=== PATIENT | male | born 1945 | race Caucasian/White ===

== ENCOUNTER 2017-02-03 11:24 | Inpatient (IN) ==
[2017-02-03] MEDS ORDERED: ZALEPLON 5 MG CAPSULE PO PRN (11:57)
[2017-02-03] MEDS ORDERED: ONDANSETRON 4 MG/2 ML VIAL IV PRN (11:57)
[2017-02-03] MEDS ORDERED: MAGNESIUM SULF RIDER 2 GM in PREMIX 1 EACH IV PRN (11:57)
[2017-02-03] MEDS ORDERED: DOCUSATE SODIUM 100 MG CAPSULE PO PRN (11:57)
[2017-02-03] MEDS ORDERED: MAGNESIUM SULF RIDER 4 GM in PREMIX 1 EACH IV PRN (11:57)
[2017-02-03] MEDS ORDERED: ACETAMINOPHEN 325 MG TABLET PO PRN (11:57)
[2017-02-03 12:31] LABS: Basophils # 0.1 10*3/uL (0.0-0.2); Basophils % 0.9 % (0.0-0.8); Eosinophils # 0.5 10*3/uL (0.0-0.87); Eosinophils % 6.5 % (0.00-10.9); Hematocrit 34.8 VOL% (42.0-52.0); Hemoglobin 10.5 GM/DL (14.0-18.0); Immature Granulocytes % 0.3 %; Immature Granulocytes Absolute 0.02 #; Lymphocytes # 1.5 10*3/uL (1.4-4.0); Lymphocytes % 20.4 % (21.2-54.2); Mean Corpuscular HGB Conc 30.2 GM/DL (32-36); Mean Corpuscular Hemoglobin 23 PG (27-34); Mean Corpuscular Volume 75.2 FL (87-102); Mean Platelet Volume 10.9 FL (9.6-12.0); Monocytes # 0.7 10*3/uL (0.11-0.8); Monocytes % 9.6 % (1.7-12.7); Neutrophils # 4.6 10*3/uL (1.4-7.4); Neutrophils % 62.3 % (38.7-73.9); Platelet Count 228 T/CUMM (130-400); Red Blood Count 4.63 MC/CUMM (3.8-5.5); Red Cell Distribution Width 18.4 % (9.3-17.3); White Blood Count 7.4 T/CUMM (4-12)
--- NOTE | 2017-02-03 12:43 | EKG Report ---
Stationary ECG Study 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
[2017-02-03 13:04] LABS: Troponin I Only < 0.015 NG/ML (0.00-0.045)
--- NOTE | 2017-02-03 13:04 | XRay Report ---
XR chest 1V portable Indication: Shortness of breath Comparison: 14 August 2014 Findings: The heart and mediastinum are normal in size and configuration. The pulmonary vascularity is normal in caliber. No lung infiltrates, effusions, pneumothorax or other abnormality is demonstrated. Impression: No acute cardiopulmonary disease. PROCEDURE INTERPRETED AT [facility] DEPARTMENT OF RADIOLOGY Final Report Signed by: Dr. Ant Booth
[2017-02-03 13:10] LABS: Alanine Aminotransferase 24 U/L (16-61); Albumin 3.2 G/DL (3.4-5.0); Alkaline Phosphatase 96 U/L (45-117); Aspartate Amino Transferase 13 U/L (0-37); Bilirubin,Total < 0.39 MG/DL (0.2-1.0); Blood Urea Nitrogen 17 MG/DL (7-18); Calcium 8.5 MG/DL (8.5-10.1); Glucose 149 MG/DL (74-106); Osmolality,Calculated 279.7 MOS/KG (273-304); Potassium 3.3 MMOL/L (3.5-5.1); Sodium 138 MMOL/L (136-145); Total Protein 6.2 G/DL (6.4-8.3)
[2017-02-03 13:20] LABS: Apearance,Urine CLEAR (Clear); Bilirubin,Urine Negative (Negative); Blood, Urine Negative (Negative); Glucose,Urine (UA) Negative (Negative); Hyaline Casts,Urine 1 /LPF (0-3); Ketones,Urine Negative (Negative); Mucus,Urine Occasional /LPF (Occasional); Nitrite,Urine Negative (Negative); Protein,Urine Negative; RBC,Urine <1 /HPF (0-4); Squamous Epithelial Cell,Urine Occasional /HPF (0-10); Urine Color Yellow (Yellow); Urine Specific Gravity 1.011 (1.001-1.035); Urine Urobilinogen < 2.0 EU/DL (0.2-1.0); WBC,Urine 2 /HPF (0-6)
[2017-02-03] MEDS ORDERED: POTASSIUM CHLORIDE 20 MEQ TABLET PO ONE (13:41)
[2017-02-03] MEDS ORDERED: POLYVINYL ALCOHOL 1.4% OPH SOLN 15 ML BOTTLE BOTH EYES PRN (13:41)
[2017-02-03 14:05] LABS: Basophils # 0.1 10*3/uL (0.0-0.2); Basophils % 0.9 % (0.0-0.8); Eosinophils # 0.5 10*3/uL (0.0-0.87); Eosinophils % 6.5 % (0.00-10.9); Hemoglobin 10.6 GM/DL (14.0-18.0); Immature Granulocytes % 0.4 %; Immature Granulocytes Absolute 0.03 #; Lymphocytes # 1.5 10*3/uL (1.4-4.0); Lymphocytes % 20.7 % (21.2-54.2); Mean Corpuscular HGB Conc 30.3 GM/DL (32-36); Mean Corpuscular Hemoglobin 23 PG (27-34); Mean Corpuscular Volume 75.8 FL (87-102); Mean Platelet Volume 11.2 FL (9.6-12.0); Monocytes # 0.7 10*3/uL (0.11-0.8); Monocytes % 9.8 % (1.7-12.7); Neutrophils # 4.6 10*3/uL (1.4-7.4); Neutrophils % 61.7 % (38.7-73.9); Platelet Count 232 T/CUMM (130-400); Red Blood Count 4.62 MC/CUMM (3.8-5.5); Red Cell Distribution Width 18.5 % (9.3-17.3); White Blood Count 7.4 T/CUMM (4-12)
[2017-02-03] MEDS: CIPROFLOXACIN 500 MG TABLET PO SCH ×2 (14:11→21:38)
[2017-02-03] MEDS: SODIUM CHLORIDE 0.45% 1,000 ML IV SCH (14:11)
[2017-02-03 14:28] LABS: Folate > 24.0 NG/ML (5.4-24.0); Vitamin B12 630 PG/ML (211-911)
--- NOTE | 2017-02-03 14:57 | Cardiology History & Physical ---
<Nati Nettles E - Last Filed: 02/03/17 14:57> Assessment and Plan (1) Weakness Status: Acute Assessment and plan: SEE PLAN OF CARE LISTED BELOW Current Visit: Yes (2) Dizziness Status: Acute Assessment and plan: SEE PLAN OF CARE LISTED BELOW Current Visit: Yes (3) Hypotension Status: Acute Assessment and plan: SEE PLAN OF CARE LISTED BELOW Current Visit: Yes (4) PAF (paroxysmal atrial fibrillation) Status: Chronic Assessment and plan: SEE PLAN OF CARE LISTED BELOW Current Visit: Yes (5) High risk medication use Status: Chronic Assessment and plan: SEE PLAN OF CARE LISTED BELOW Current Visit: Yes (6) Chest pain Status: Acute Assessment and plan: SEE PLAN OF CARE LISTED BELOW Current Visit: Yes (7) Chronic pain Status: Chronic Assessment and plan: SEE PLAN OF CARE LISTED BELOW Current Visit: Yes (8) PTSD (post-traumatic stress disorder) Status: Chronic Assessment and plan: SEE PLAN OF CARE LISTED BELOW Current Visit: Yes (9) Polypharmacy Status: Chronic Assessment and plan: SEE PLAN OF CARE LISTED BELOW Current Visit: Yes (10) Dyslipidemia Status: Chronic Assessment and plan: SEE PLAN OF CARE LISTED BELOW Current Visit: Yes (11) UTI (urinary tract infection) Status: Chronic Assessment and plan: SEE PLAN OF CARE LISTED BELOW Current Visit: Yes (12) Anemia Status: Chronic Assessment and plan: SEE PLAN OF CARE LISTED BELOW Current Visit: Yes (13) JILLIAN (obstructive sleep apnea) Status: Chronic Assessment and plan: SEE PLAN OF CARE LISTED BELOW Current Visit: Yes History of Present Illness Chief complaint: Weakness, dizziness, atrial fib, hypotension 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 Mr. Sanchez, 71WM with risk factors significant for: Hypertension, dyslipidemia, sedentary lifestyle. History of paroxysmal atrial fibrillation (takes Eliquis for stroke prevention), mild mitral insufficiency, PTSD, obstructive sleep apnea (compliant with device) and legally blind. Echocardiogram September 02, 2016 reveals the following: EF 55%, 1+ MR, PAP 21 mmHg. Heart catheterization reveals the following: No evidence of significant fixed coronary obstruction. Patient was in his usual state of health until he began to get out of the vehicle to see Dr. Escobedo at [facility] this morning. As he was climbing out of the vehicle, he began to feel lightheaded, dizzy and weak. Upon evaluation at [facility], he was found to be in atrial fibrillation with a heart rate of 105, blood pressure 96/68. Patient was unsteady on his feet and was directly admitted from clinic for further workup. As I am examining the patient, patient reports he has had some mild chest pain which just started this afternoon. Described as tightness in the center of his chest without radiation. He can identify no aggravating nor any alleviating factors. He is unable to write the discomfort on a scale of 1-10, currently chest pain-free. Cardiac biomarkers negative, EKG does not reveal AK. At this point, I will hold his antihypertensives. His heart rate is controlled at 98 bpm though remains irregular. He does have a mild UTI, mildly anemic. He is very lethargic snoring and wakes easily but returns to sleep quickly. He has PTSD and has numerous medications which may contribute to dizziness, hypotension including Amitriptyline, Buspirone, Klonopin, Primidone, Tramadol, Topiramate. These multiple medications for PTSD, chronic pain/neuropathy are prescribed by his physician at the [facility] in [place], [place]. IV hydration at half-normal 100 ml/h, orthostatic vital signs, carotid ultrasound, no need to repeat echocardiogram as there is a recent study. Continue to hold his antihypertensives. I have started Cipro for UTI. Blood cultures 2 have been ordered. Continue cycle cardiac biomarkers, EKG. His heart rate is controlled at this time. I have added stool for occult blood 3 , anemia profile. Patient reports long-standing history of mild anemia. Underwent Colonoscopy within the last year performed by Dr. Hall and received favorable results her daughter's report. For now, continue Eliquis. Will further discuss with Dr. Stroud and await additional recommendations. ASSESSMENT/PLAN: 1. DIZZINESS - hydrate, carotid ultrasounds, hold antihypertensives. May be related to polypharmacy. May could benefit from the advice and management from hospitalist. 2. WEAKNESS - see plan of care listed above 3. PAF WITH RVR - currently rate controlled. Continue Eliquis for stroke prevention. No need for aspirin as the patient is taking Eliquis. 4. HYPOTENSION - adjust meds accordingly, hydrate, treat UTI 5. UTI - Cipro 500 mg orally twice daily 6. ANEMIA - patient had colonoscopy recently. Checking stools for occult blood. At this point, continue Eliquis per 7. LEGALLY BLIND - [place] falls prevention program 8. PTSD - treated by the [place] [facility] for PTSD. On numerous medications for such. 9. CHRONIC PAIN - chronic pain to include back pain, leg and feet pain. History of neuropathy. Continue gabapentin 10. DYSLIPIDEMIA - fasting lipid profile in the morning. Continue lipid- lowering agent 11. JILLIAN - may use his sleep device from home. Home Medications Medication Instructions Recorded Confirmed Type Albuterol Sulfate [Albuterol Neb] 1.25 mg RESP TX Q6HR 05/04/16 05/04/16 History Albuterol Sulfate [Ventolin HFA] 2 puff INH Q6HR 05/04/16 05/04/16 History Amitriptyline [Elavil] 4 tablet PO BEDTIME 05/04/16 05/04/16 History Apixaban [Eliquis] 5 mg PO BID 05/04/16 05/04/16 History Aspirin [Ecotrin] 81 mg PO DAILY 05/04/16 05/04/16 History Budesonide/Formoterol 160-4.5 2 puff INH BID 05/04/16 05/04/16 History [Symbicort 160-4.5] Docusate Sodium Cap [Colace Cap] 3 tablet PO DAILY 05/04/16 05/04/16 History Echinacea 2 tablet PO DAILY 05/04/16 05/04/16 History Gabapentin 300 mg PO BID 05/04/16 05/04/16 History Garlic 2 capsule PO DAILY 05/04/16 05/04/16 History Ipratropium Driver 0.2 mg IH QID 05/04/16 05/04/16 History Lisinopril 2.5 mg PO DAILY 05/04/16 05/04/16 History Multivitamin [Multivitamins] 1 each PO DAILY 05/04/16 05/04/16 History Naproxen [Naprosyn Tab] 250 mg PO BID 05/04/16 05/04/16 History [place]-3 Fatty Acids [Fish Oil] 2,000 mg PO DAILY 05/04/16 05/04/16 History Pantoprazole Tab [Protonix Tab] 2 tablet PO BID 05/04/16 05/04/16 History Polyvinyl Alcohol 1.4% Oph [place] 1 drop BOTH EYES Q2H PRN 05/04/16 05/04/16 History [Artificial Tears Oph Soln] Potassium Chloride 10 meq PO BID 05/04/16 05/04/16 History Pravastatin [Pravachol] 40 mg PO DAILY 05/04/16 05/04/16 History Primidone 2 capsule PO BEDTIME 05/04/16 05/04/16 History Topiramate [Topamax] 0.5 tablet PO BID 05/04/16 05/04/16 History amLODIPine [Norvasc] 10 mg PO DAILY 05/04/16 05/04/16 History busPIRone [Buspar] 10 mg PO TID 05/04/16 05/04/16 History clonazePAM TAB [KlonoPIN] 0.5 mg PO QID 05/04/16 05/04/16 History hydroCHLOROthiazide 25 mg PO DAILY 05/04/16 05/04/16 History [Hydrochlorothiazide] raNITIdine HCl [Ranitidine HCl] 2 capsule PO BEDTIME 05/04/16 05/04/16 History traMADol TAB [Ultram] 50 mg PO BID 05/04/16 05/04/16 History Allergies Allergy/AdvReac Type Severity Reaction Status Date / Time Beef Allergy Mild Nasal Verified 02/03/17 12:23 Congestion Cola Allergy Mild Nasal Verified 02/03/17 12:23 Congestion Milk Containing Products Allergy Mild Nasal Verified 02/03/17 12:23 Congestion Nuts Allergy Mild Nasal Verified 02/03/17 12:22 Congestion Pork Allergy Mild Nasal Verified 02/03/17 12:23 Congestion bacitracin Allergy Unknown Unknown/Unable Verified 05/04/16 13:22 [From Neosporin to obtain ([id number])] magnesium Allergy Unknown Unknown/Unable Verified 05/04/16 13:22 to obtain Neomycin Allergy Unknown Unknown/Unable Verified 05/04/16 13:22 [From Neosporin to obtain ([id number])] polymyxin B Allergy Unknown Unknown/Unable Verified 05/04/16 13:22 [From Neosporin to obtain ([id number])] zinc Allergy Unknown Unknown/Unable Verified 05/04/16 13:22 to obtain Review of systems: REVIEW OF SYSTEMS: - Constitutional Constitutional: Present: Fatigue dizziness, near syncope. Absent: syncope, anorexia, night sweats - EENT Eyes: Legally blind both eyes. Denies eye pain Ears: Absent: decreased hearing, ear pain, ear discharge - Cardiovascular Cardiovascular: Denies chest pain with exertion, dyspnea on exertion. Denies lower extremity edema. Occasional palpitations. Absent: chest pain with deep breath, claudication - Respiratory Respiratory: Denies RODRIGUEZ, Absent: wheezing, hemoptysis, change in phlegm color - Gastrointestinal Gastrointestinal: Denies: constipation. Possibly some abdominal bloating. Absent: Abdominal pain, hematemesis, hematochezia, melena, change in bowel habits, nausea - Genitourinary Genitourinary: Absent: difficulty urinating, dysuria, urinary hesitancy, flank pain - Musculoskeletal Musculoskeletal: Present: back pain, bilateral lower extremity pain including feet pain. Absent: joint swelling, muscle cramps, muscle weakness - Neurological Neurological: Present: Poor gait without frequent falls. Absent: dizziness, hemiparesis - Psychiatric Psychiatric: Anxiety and difficulty concentrating. Absent: Endocrine Endocrine: Present: fatigue. Absent: cold intolerance, heat intolerance, polyuria, polyphagia, polydipsia - Hematologic/Lymphatic Hematologic/Lymphatic: Present: easy bruising. Absent: easy bleeding -Integumentary Integumentary: Absent: lesions, rashes, skin breakdown Medical,Surgical,& Family Hx - Medical History Cardio: History of: Cardiac Dysrhythmia, Hypertension, Cardiovascular Problems ( mitral valve leak, afib) No history of: CAD Psychological: History of: Anxiety Disorders (ptsd), Depression Neurology: History of: Migraine No history of: Seizures, TIA HEENT: History of: Ear Problem (Tubes placed multiple times), Eye Problem (blind ) Endocrine: History of: Dyslipidemia Rheumatology: History of;: Rheumatological Problems (neuropathy) Respiratory: History of: Asthma, COPD, Obstructive Sleep Apnea (CPAP AT HOME) Genitourinary: History of: Prostate Problems (ENLARGED PROSTATE, DR AHUMADA "DID A CLEAN OUT" PER ) Gastrointestinal: History of: Diverticulitis/ Diverticulosis, GERD, Hemorrhoids (hemmorhoidectomy "A COUPLE OF TIMES"), Polyps (REMOVED A YEAR AGO) Musculoskeletal: History of: Back/Neck Problems (back surgery x 3 Chronic back pain), Degenerative Disk Disease Other: History of: Cancer (melanoma right wrist- removed) No history of: Anesthesia Reactions - Surgical History HEENT Surgeries: Surgical HX of: Eye Surgery (eye lids surgically closed), Tonsilectomy & Adenoidectomy Abdominal Surgeries: Surgical HX of: Appendectomy, Colonoscopy ("JUST OVER A YEAR AGO"), EGD Reproductive Surgeries: Surgical HX of;: Prostate Surgery - Family History Family History: Reports;: Family Cancer (sister-thyroid, brother-lung, lymphoma) - Social History Smoking Status: Never smoker Have you smoked in the last 12 months: No Frequency of Alcohol Use: Rarely Type of Drug Use: None Marital Status: Lives With:: Spouse Functional capacity: uses cane/walker Cardiology Physical Exam - Constitutional Vitals: Vital Signs Temp Pulse Resp BP Pulse Ox 97.6 F 97 H 19 100/78 96 02/03/17 12:00 02/03/17 13:30 02/03/17 13:30 02/03/17 13:30 02/03/17 13:30 Intake and Output 02/02/17 02/03/17 02/03/17 23:59 07:59 15:59 Other: Weight 95.481 kg Patient Weight 02/03/17 23:59 Weight 95.481 kg Exam: General: [Appears well with no apparent distress.] [Pleasant and cooperative. ] [Appears comfortable.] HEENT: [normocephalic, atraumatic. Mucous membranes moist. No jaundice noted. Conjunctiva moist and clear, sclerae anicteric] Neck: No JVD/HJR, no thyromegaly or lymphadenopathy noted. No carotid bruit appreciated Cardiac: [Irregularly irregular rhythm, controlled rate.] [No obvious murmur rub or gallop.] Lungs: [Clear to auscultation without accessory muscle use to assist the respiratory pattern.] Oxygen in use via nasal cannula Abdomen: Soft, bowel sounds normoactive. Nontender and nondistended. No abdominal bruit or thrill noted. No masses noted. Musculoskeletal: No fluid collection. Decreased range of motion is noted. Extremities: No clubbing, cyanosis noted. [Trace bilateral lower extremity edema noted.] Upper extremity pulses 2+. Lower extremity pulses 2+. Capillary refill less than 3 seconds. Skin: No unusual lesions or rashes. No skin breakdown appreciated. Neuro: Awake, alert and oriented 3. Moves all extremities well without hemiparesis or paralysis. No essential tremor is appreciated. Result/EKG - Labs CBC & BMP: 02/03/17 12:13 02/03/17 12:13 Lab Results: I have reviewed the past 24 hour labs Labs: Laboratory Results - last 24 hr 02/03/17 02/03/17 02/03/17 11:59 12:10 12:10 WBC 7.4 RBC 4.62 Hgb 10.6 L Hct 35.0 L MCV 75.8 L MCH 23 L MCHC 30.3 L RDW 18.5 H Plt Count 232 MPV 11.2 Neut % (Auto) 61.7 Lymph % (Auto) 20.7 L [place] % (Auto) 9.8 Eos % (Auto) 6.5 Baso % (Auto) 0.9 H Neut # (Auto) 4.6 Lymph # (Auto) 1.5 [place] # (Auto) 0.7 Eos # (Auto) 0.5 Baso # (Auto) 0.1 Immature Gran % 0.4 Nucleated RBC % 0.0 Immature Gran # 0.03 Nucleated RBCs # 0.00 Immature Plt Fraction 0.0 Absolute Retic 0.1 Percent Retic 1.5 Retic Hgb Equivalent 21.4 L Sodium Potassium Chloride Carbon Dioxide Anion Gap BUN Creatinine GFR Calculation BUN/Creatinine Ratio Glucose Calculated Osmolality Calcium Ferritin 4.2 L Total Bilirubin AST ALT Alkaline Phosphatase Total Creatine Kinase CK-MB (CK-2) Troponin I B-Natriuretic Peptide Total Protein Albumin Globulin Albumin/Globulin Ratio Vitamin B12 Folate TSH 3rd Generation Urine Color Yellow Urine Appearance Clear Urine pH 7.0 Ur Specific [place] 1.011 Urine Protein Negative Urine Glucose (UA) Negative Urine Ketones Negative Urine Blood Negative Urine Nitrate Negative Urine Bilirubin Negative Urine Urobilinogen < 2.0 H Urine Leukocytes Small H Urine RBC <1 Urine WBC 2 Ur Squamous Epith Cells Occasional Hyaline Casts 1 Urine Mucus Occasional Ur Culture Indicated? Results to follow 02/03/17 02/03/17 02/03/17 12:10 12:13 12:13 WBC 7.4 RBC 4.63 Hgb 10.5 L Hct 34.8 L MCV 75.2 L MCH 23 L MCHC 30.2 L RDW 18.4 H Plt Count 228 MPV 10.9 Neut % (Auto) 62.3 Lymph % (Auto) 20.4 L [place] % (Auto) 9.6 Eos % (Auto) 6.5 Baso % (Auto) 0.9 H Neut # (Auto) 4.6 Lymph # (Auto) 1.5 [place] # (Auto) 0.7 Eos # (Auto) 0.5 Baso # (Auto) 0.1 Immature Gran % 0.3 Nucleated RBC % 0.0 Immature Gran # 0.02 Nucleated RBCs # 0.00 Immature Plt Fraction Absolute Retic Percent Retic Retic Hgb Equivalent Sodium 138 Potassium 3.3 L Chloride 105 Carbon Dioxide 26 Anion Gap 10.3 BUN 17 Creatinine 1.10 GFR Calculation 82 BUN/Creatinine Ratio 15.00 Glucose 149 H Calculated Osmolality 279.7 Calcium 8.5 Ferritin Total Bilirubin < 0.39 AST 13 ALT 24 Alkaline Phosphatase 96 Total Creatine Kinase CK-MB (CK-2) Troponin I B-Natriuretic Peptide Total Protein 6.2 L Albumin 3.2 L Globulin 3.0 Albumin/Globulin Ratio 1.0 L Vitamin B12 630 Folate > 24.0 H TSH 3rd Generation 1.230 Urine Color Urine Appearance Urine pH Ur Specific [place] Urine Protein Urine Glucose (UA) Urine Ketones Urine Blood Urine Nitrate Urine Bilirubin Urine Urobilinogen Urine Leukocytes Urine RBC Urine WBC Ur Squamous Epith Cells Hyaline Casts Urine Mucus Ur Culture Indicated? 02/03/17 02/03/17 12:13 12:13 WBC RBC Hgb Hct MCV MCH MCHC RDW Plt Count MPV Neut % (Auto) Lymph % (Auto) [place] % (Auto) Eos % (Auto) Baso % (Auto) Neut # (Auto) Lymph # (Auto) [place] # (Auto) Eos # (Auto) Baso # (Auto) Immature Gran % Nucleated RBC % Immature Gran # Nucleated RBCs # Immature Plt Fraction Absolute Retic Percent Retic Retic Hgb Equivalent Sodium Potassium Chloride Carbon Dioxide Anion Gap BUN Creatinine GFR Calculation BUN/Creatinine Ratio Glucose Calculated Osmolality Calcium Ferritin Total Bilirubin AST ALT Alkaline Phosphatase Total Creatine Kinase 65 CK-MB (CK-2) 1.0 Troponin I < 0.015 B-Natriuretic Peptide 125 H Total Protein Albumin Globulin Albumin/Globulin Ratio Vitamin B12 Folate TSH 3rd Generation Urine Color Urine Appearance Urine pH Ur Specific [place] Urine Protein Urine Glucose (UA) Urine Ketones Urine Blood Urine Nitrate Urine Bilirubin Urine Urobilinogen Urine Leukocytes Urine RBC Urine WBC Ur Squamous Epith Cells Hyaline Casts Urine Mucus Ur Culture Indicated? - Diagnostic Findings Procedure: Chest x-ray: report reviewed by me - EKG EKG results: interpreted by pr EKG shows: atrial fibrillation <Rafael Stroud - Last Filed: 02/03/17 17:39> History of Present Illness History of present illness: Cardiology addendum 71-year-old man admitted with hypotension altered mental status and recurrent atrial fibrillation. Patient takes Eliquis for chronic anticoagulation. Patient has a UTI And started on Cipro Obstructive sleep apnea Chronic pain syndrome requiring multiple analgesics Polypharmacy strongly suspected. Legally blind Plan CPAP Cipro, await urine culture results Normal saline hydration Echo Doppler Begin sotalol 80 mg twice daily Cardiology Physical Exam - Constitutional Vitals: Vital Signs Temp Pulse Resp BP Pulse Ox 97.6 F 107 H 20 125/93 96 02/03/17 16:00 02/03/17 16:00 02/03/17 16:00 02/03/17 16:00 02/03/17 16:00 Intake and Output 02/03/17 02/03/17 02/03/17 07:59 15:59 23:59 Other: Voiding Method Toilet Toilet # Voids 1 1 # Bowel Movements 1 1 Weight 95.481 kg Patient Weight 02/03/17 23:59 Weight 95.481 kg Result/EKG - Labs CBC & BMP: 02/03/17 12:13 02/03/17 12:13 Labs: Laboratory Results - last 24 hr 02/03/17 02/03/17 02/03/17 11:59 12:10 12:10 WBC 7.4 RBC 4.62 Hgb 10.6 L Hct 35.0 L MCV 75.8 L MCH 23 L MCHC 30.3 L RDW 18.5 H Plt Count 232 MPV 11.2 Neut % (Auto) 61.7 Lymph % (Auto) 20.7 L [place] % (Auto) 9.8 Eos % (Auto) 6.5 Baso % (Auto) 0.9 H Neut # (Auto) 4.6 Lymph # (Auto) 1.5 [place] # (Auto) 0.7 Eos # (Auto) 0.5 Baso # (Auto) 0.1 Immature Gran % 0.4 Nucleated RBC % 0.0 Immature Gran # 0.03 Nucleated RBCs # 0.00 Immature Plt Fraction 0.0 ESR [place] 11 Absolute Retic 0.1 Percent Retic 1.5 Retic Hgb Equivalent 21.4 L Sodium Potassium Chloride Carbon Dioxide Anion Gap BUN Creatinine GFR Calculation BUN/Creatinine Ratio Glucose Calculated Osmolality Calcium Ferritin 4.2 L Total Bilirubin AST ALT Alkaline Phosphatase Total Creatine Kinase CK-MB (CK-2) Troponin I B-Natriuretic Peptide Total Protein Albumin Globulin Albumin/Globulin Ratio Vitamin B12 Folate TSH 3rd Generation Urine Color Yellow Urine Appearance Clear Urine pH 7.0 Ur Specific [place] 1.011 Urine Protein Negative Urine Glucose (UA) Negative Urine Ketones Negative Urine Blood Negative Urine Nitrate Negative Urine Bilirubin Negative Urine Urobilinogen < 2.0 H Urine Leukocytes Small H Urine RBC <1 Urine WBC 2 Ur Squamous Epith Cells Occasional Hyaline Casts 1 Urine Mucus Occasional Ur Culture Indicated? Results to follow VIOLETA (IgG-AHG) VIOLETA, Polyspecific 02/03/17 02/03/17 02/03/17 12:10 12:10 12:13 WBC 7.4 RBC 4.63 Hgb 10.5 L Hct 34.8 L MCV 75.2 L MCH 23 L MCHC 30.2 L RDW 18.4 H Plt Count 228 MPV 10.9 Neut % (Auto) 62.3 Lymph % (Auto) 20.4 L [place] % (Auto) 9.6 Eos % (Auto) 6.5 Baso % (Auto) 0.9 H Neut # (Auto) 4.6 Lymph # (Auto) 1.5 [place] # (Auto) 0.7 Eos # (Auto) 0.5 Baso # (Auto) 0.1 Immature Gran % 0.3 Nucleated RBC % 0.0 Immature Gran # 0.02 Nucleated RBCs # 0.00 Immature Plt Fraction ESR [place] Absolute Retic Percent Retic Retic Hgb Equivalent Sodium Potassium Chloride Carbon Dioxide Anion Gap BUN Creatinine GFR Calculation BUN/Creatinine Ratio Glucose Calculated Osmolality Calcium Ferritin Total Bilirubin AST ALT Alkaline Phosphatase Total Creatine Kinase CK-MB (CK-2) Troponin I B-Natriuretic Peptide Total Protein Albumin Globulin Albumin/Globulin Ratio Vitamin B12 630 Folate > 24.0 H TSH 3rd Generation Urine Color Urine Appearance Urine pH Ur Specific [place] Urine Protein Urine Glucose (UA) Urine Ketones Urine Blood Urine Nitrate Urine Bilirubin Urine Urobilinogen Urine Leukocytes Urine RBC Urine WBC Ur Squamous Epith Cells Hyaline Casts Urine Mucus Ur Culture Indicated? VIOLETA (IgG-AHG) Negative VIOLETA, Polyspecific Negative 02/03/17 02/03/17 02/03/17 12:13 12:13 12:13 WBC RBC Hgb Hct MCV MCH MCHC RDW Plt Count MPV Neut % (Auto) Lymph % (Auto) [place] % (Auto) Eos % (Auto) Baso % (Auto) Neut # (Auto) Lymph # (Auto) [place] # (Auto) Eos # (Auto) Baso # (Auto) Immature Gran % Nucleated RBC % Immature Gran # Nucleated RBCs # Immature Plt Fraction ESR [place] Absolute Retic Percent Retic Retic Hgb Equivalent Sodium 138 Potassium 3.3 L Chloride 105 Carbon Dioxide 26 Anion Gap 10.3 BUN 17 Creatinine 1.10 GFR Calculation 82 BUN/Creatinine Ratio 15.00 Glucose 149 H Calculated Osmolality 279.7 Calcium 8.5 Ferritin Total Bilirubin < 0.39 AST 13 ALT 24 Alkaline Phosphatase 96 Total Creatine Kinase 65 CK-MB (CK-2) 1.0 Troponin I < 0.015 B-Natriuretic Peptide 125 H Total Protein 6.2 L Albumin 3.2 L Globulin 3.0 Albumin/Globulin Ratio 1.0 L Vitamin B12 Folate TSH 3rd Generation 1.230 Urine Color Urine Appearance Urine pH Ur Specific [place] Urine Protein Urine Glucose (UA) Urine Ketones Urine Blood Urine Nitrate Urine Bilirubin Urine Urobilinogen Urine Leukocytes Urine RBC Urine WBC Ur Squamous Epith Cells Hyaline Casts Urine Mucus Ur Culture Indicated? VIOLETA (IgG-AHG) VIOLETA, Polyspecific
[2017-02-03 15:09] LABS: Sedimentation Rate-Westergren 11 MM/HR (0-20)
--- NOTE | 2017-02-03 16:03 | Ultrasound Report ---
Carotid artery ultrasound Indication: Syncope Comparison: None available Color Doppler flow and spectral analysis was performed. Findings: Small amount of atherosclerotic plaque is present in both proximal internal carotid arteries. Right peak systolic velocity: Right proximal Internal Carotid Artery is 48.1 cm/s. Ratio of flow is 0.8 Right distal Internal Carotid is 69.0 cm/s . Left peak systolic velocity: Left proximal Internal carotid Artery is 52.0 cm/s . Ratio of flow is 1.2 Left distal Internal carotid Artery is 79.4cm/s Bilateral antegrade vertebral flow is seen. Impression: No evidence of hemodynamically significant stenosis is seen, 0-49% estimated stenosis. Consensus conference on the carotid ultrasound criteria used. Ultrasound images were captured and stored. PROCEDURE INTERPRETED AT [facility] DEPARTMENT OF RADIOLOGY Final Report Signed by: Dr. Ant Booth
[2017-02-03] MEDS: clonazePAM 0.5 MG TABLET PO SCH ×2 (17:01→21:34)
--- NOTE | 2017-02-03 18:05 | ECHO Report ---
Abraham Sanchez Exam Date: 02/03/2017 15:12 Referring Physician: Technologist: Monse Chatterjee Age: 71 Ht (in): 68 Wt (lb): 210 Gender: M Exam Location: [facility] Echo Indications: a fib, Hypotension, weakness, dizziness, high risk medications, chest pain, poly pharmacy, PTSD, JILLIAN, anemia, UTI, dyslipidemia BP: 100 / 78 HR: 97 Rhythm: Atrial fibrillation Technical Quality: Fair IMPRESSIONS Normal left ventricular cavity size. EF 45-50 %. Normal right ventricular size. The right atrium is mildly enlarged. The left atrium is mildly enlarged. Mildly thickened mitral valve with mild mitral regurgitation. Aortic valve sclerosis. No aortic valve regurgitation. Mild tricuspid valve regurgitation. [id number]. Pulmonic valve not well visualized. No pericardial effusion. Normal size aortic root and proximal ascending aorta. MEASUREMENTS (Male / Female) Normal Values 2D ECHO LV Diastolic Diameter PLAX 4.6 cm 4.2 - 5.9 / 3.9 - 5.3 cm LV Systolic Diameter PLAX 3.8 cm LV Fractional Shortening PLAX 16.6 % IVS Diastolic Thickness 1.3 cm 0.6 - 1.0 / 0.6 - 0.9 cm LVPW Diastolic Thickness 1.2 cm 0.6 - 1.0 / 0.6 - 0.9 cm Aortic Root Diameter 3.1 cm LA Systolic Diameter LX 4.3 cm 3.0 - 4.0 / 2.7 - 3.8 cm DOPPLER TR Peak Velocity 214.0 cm/s TR Peak Gradient 18.3 mmHg FINDINGS Left Ventricle Normal left ventricular cavity size. .EF 45-50 %. Right Ventricle Normal right ventricular size. Right Atrium The right atrium is mildly enlarged. Left Atrium The left atrium is mildly enlarged. Mitral Valve Mildly thickened mitral valve with mild mitral regurgitation. Aortic Valve Aortic valve sclerosis. No aortic valve regurgitation. Tricuspid Valve Morphologically normal tricuspid valve. Mild tricuspid valve regurgitation. [id number]. Pulmonic Valve Pulmonic valve not well visualized. Pericardium No pericardial effusion. Aorta Normal size aortic root and proximal ascending aorta. Yomi Stroud (Electronically Signed) Final Date: 03 February 2017 18:04
[2017-02-03] MEDS: IPRATROPIUM 500 MCG/2.5 ML NEB RESP TX SCH (19:49)
[2017-02-03] MEDS: ALBUTEROL 2.5 MG/3 ML NEB RESP TX SCH (19:49)
[2017-02-03] MEDS ORDERED: AMITRIPTYLINE 50 MG TABLET PO SCH (21:00)
[2017-02-03 21:08] LABS: Troponin I Only < 0.015 NG/ML (0.00-0.045)
[2017-02-03] MEDS: busPIRone 10 MG TABLET PO SCH (21:35)
[2017-02-03] MEDS: GABAPENTIN 300 MG CAPSULE PO SCH (21:35)
[2017-02-03] MEDS: PANTOPRAZOLE 40 MG TABLET PO SCH (21:36)
[2017-02-03] MEDS: TOPIRAMATE 100 MG TABLET PO SCH (21:37)
[2017-02-03] MEDS: APIXABAN 5 MG TABLET PO SCH (21:37)
[2017-02-03] MEDS: traMADol 50 MG TABLET PO SCH (21:37)
[2017-02-03] MEDS: SOTALOL 80 MG TABLET PO SCH (21:37)
[2017-02-03] MEDS: POTASSIUM CHLORIDE 10 MEQ TABLET PO SCH (21:38)
[2017-02-03] MEDS: PRIMIDONE 250 MG TABLET PO SCH (21:38)
[2017-02-03] MEDS: BUDESONIDE/FORMOTEROL 160-4.5 INHALER 6 GM INH SCH (21:39)
[2017-02-04] MEDS: ALBUTEROL 2.5 MG/3 ML NEB RESP TX SCH ×4 (01:14→19:21)
[2017-02-04] MEDS: SODIUM CHLORIDE 0.45% 1,000 ML IV SCH ×2 (02:34→15:23)
[2017-02-04 04:48] LABS: Basophils # 0.1 10*3/uL (0.0-0.2); Eosinophils # 0.8 10*3/uL (0.0-0.87); Eosinophils % 9.9 % (0.00-10.9); Hematocrit 37.4 VOL% (42.0-52.0); Hemoglobin 11.4 GM/DL (14.0-18.0); Immature Granulocytes % 0.4 %; Immature Granulocytes Absolute 0.03 #; Lymphocytes # 2.2 10*3/uL (1.4-4.0); Lymphocytes % 28.6 % (21.2-54.2); Mean Corpuscular HGB Conc 30.5 GM/DL (32-36); Mean Corpuscular Hemoglobin 23 PG (27-34); Mean Corpuscular Volume 73.9 FL (87-102); Mean Platelet Volume 10.9 FL (9.6-12.0); Monocytes # 0.9 10*3/uL (0.11-0.8); Monocytes % 11.3 % (1.7-12.7); Neutrophils # 3.8 10*3/uL (1.4-7.4); Neutrophils % 48.8 % (38.7-73.9); Platelet Count 241 T/CUMM (130-400); Red Blood Count 5.06 MC/CUMM (3.8-5.5); Red Cell Distribution Width 18.5 % (9.3-17.3); White Blood Count 7.8 T/CUMM (4-12)
[2017-02-04 05:33] LABS: Alanine Aminotransferase 27 U/L (16-61); Albumin 3.1 G/DL (3.4-5.0); Alkaline Phosphatase 93 U/L (45-117); Aspartate Amino Transferase 24 U/L (0-37); Blood Urea Nitrogen 17 MG/DL (7-18); Calcium 8.8 MG/DL (8.5-10.1); Cholesterol 158 MG/DL (50-200); Glucose 96 MG/DL (74-106); HDL Cholesterol 37 MG/DL (40-60); Osmolality,Calculated 284.1 MOS/KG (273-304); Potassium 3.9 MMOL/L (3.5-5.1); Risk Ratio 4.27; Sodium 142 MMOL/L (136-145); Total Protein 6.2 G/DL (6.4-8.3); Triglycerides 118 MG/DL (2-150); Troponin I Only < 0.015 NG/ML (0.00-0.045); VLDL CHOLESTEROL 23.6 MG/DL
--- NOTE | 2017-02-04 07:39 | Cardiology Progress Note ---
Cardiology - PN: Subj Interval history: Cardiology note 71 year old man admitted with hypotension, altered mental status and recurrent atrial fibrillation. 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 JILLIAN Probable UTI Chronic anticoagulation with Eliquis Plan Continue Eliquis twice daily Sotalol 80 mg twice daily CPAP nightly Normal saline hydration Urine culture pending Will consult hospitalist for recommendations regarding pain management medication streamlining Exam (Progress Note) - Constitutional Vitals: Period Temp Pulse Resp BP Sys/Conte Pulse Ox Last 24 Hr 97.6 F-98.5 F 89-122 10-33 83-125/59-94 96-100 Result/EKG - Labs CBC & BMP: 02/04/17 04:08 02/04/17 04:08 Labs: Laboratory Results - last 24 hr 02/03/17 02/03/17 02/03/17 11:59 12:10 12:10 WBC 7.4 RBC 4.62 Hgb 10.6 L Hct 35.0 L MCV 75.8 L MCH 23 L MCHC 30.3 L RDW 18.5 H Plt Count 232 MPV 11.2 Neut % (Auto) 61.7 Lymph % (Auto) 20.7 L [place] % (Auto) 9.8 Eos % (Auto) 6.5 Baso % (Auto) 0.9 H Neut # (Auto) 4.6 Lymph # (Auto) 1.5 [place] # (Auto) 0.7 Eos # (Auto) 0.5 Baso # (Auto) 0.1 Immature Gran % 0.4 Nucleated RBC % 0.0 Immature Gran # 0.03 Nucleated RBCs # 0.00 Immature Plt Fraction 0.0 ESR Westergren 11 Absolute Retic 0.1 Percent Retic 1.5 Retic Hgb Equivalent 21.4 L Sodium Potassium Chloride Carbon Dioxide Anion Gap BUN Creatinine GFR Calculation BUN/Creatinine Ratio Glucose Calculated Osmolality Calcium Ferritin 4.2 L Total Bilirubin AST ALT Alkaline Phosphatase Total Creatine Kinase CK-MB (CK-2) Troponin I B-Natriuretic Peptide Total Protein Albumin Globulin Albumin/Globulin Ratio Triglycerides Cholesterol LDL Cholesterol VLDL Cholesterol HDL Cholesterol Heart Disease Risk Ratio Vitamin B12 Folate TSH 3rd Generation Urine Color Yellow Urine Appearance Clear Urine pH 7.0 Ur Specific [place] 1.011 Urine Protein Negative Urine Glucose (UA) Negative Urine Ketones Negative Urine Blood Negative Urine Nitrate Negative Urine Bilirubin Negative Urine Urobilinogen < 2.0 H Urine Leukocytes Small H Urine RBC <1 Urine WBC 2 Ur Squamous Epith Cells Occasional Hyaline Casts 1 Urine Mucus Occasional Ur Culture Indicated? Results to follow VIOLETA (IgG-AHG) VIOLETA, Polyspecific 02/03/17 02/03/17 02/03/17 12:10 12:10 12:13 WBC 7.4 RBC 4.63 Hgb 10.5 L Hct 34.8 L MCV 75.2 L MCH 23 L MCHC 30.2 L RDW 18.4 H Plt Count 228 MPV 10.9 Neut % (Auto) 62.3 Lymph % (Auto) 20.4 L [place] % (Auto) 9.6 Eos % (Auto) 6.5 Baso % (Auto) 0.9 H Neut # (Auto) 4.6 Lymph # (Auto) 1.5 [place] # (Auto) 0.7 Eos # (Auto) 0.5 Baso # (Auto) 0.1 Immature Gran % 0.3 Nucleated RBC % 0.0 Immature Gran # 0.02 Nucleated RBCs # 0.00 Immature Plt Fraction ESR Westergren Absolute Retic Percent Retic Retic Hgb Equivalent Sodium Potassium Chloride Carbon Dioxide Anion Gap BUN Creatinine GFR Calculation BUN/Creatinine Ratio Glucose Calculated Osmolality Calcium Ferritin Total Bilirubin AST ALT Alkaline Phosphatase Total Creatine Kinase CK-MB (CK-2) Troponin I B-Natriuretic Peptide Total Protein Albumin Globulin Albumin/Globulin Ratio Triglycerides Cholesterol LDL Cholesterol VLDL Cholesterol HDL Cholesterol Heart Disease Risk Ratio Vitamin B12 630 Folate > 24.0 H TSH 3rd Generation Urine Color Urine Appearance Urine pH Ur Specific [place] Urine Protein Urine Glucose (UA) Urine Ketones Urine Blood Urine Nitrate Urine Bilirubin Urine Urobilinogen Urine Leukocytes Urine RBC Urine WBC Ur Squamous Epith Cells Hyaline Casts Urine Mucus Ur Culture Indicated? VIOLETA (IgG-AHG) Negative VIOLETA, Polyspecific Negative 02/03/17 02/03/17 02/03/17 12:13 12:13 12:13 WBC RBC Hgb Hct MCV MCH MCHC RDW Plt Count MPV Neut % (Auto) Lymph % (Auto) [place] % (Auto) Eos % (Auto) Baso % (Auto) Neut # (Auto) Lymph # (Auto) [place] # (Auto) Eos # (Auto) Baso # (Auto) Immature Gran % Nucleated RBC % Immature Gran # Nucleated RBCs # Immature Plt Fraction ESR Westergren Absolute Retic Percent Retic Retic Hgb Equivalent Sodium 138 Potassium 3.3 L Chloride 105 Carbon Dioxide 26 Anion Gap 10.3 BUN 17 Creatinine 1.10 GFR Calculation 82 BUN/Creatinine Ratio 15.00 Glucose 149 H Calculated Osmolality 279.7 Calcium 8.5 Ferritin Total Bilirubin < 0.39 AST 13 ALT 24 Alkaline Phosphatase 96 Total Creatine Kinase 65 CK-MB (CK-2) 1.0 Troponin I < 0.015 B-Natriuretic Peptide 125 H Total Protein 6.2 L Albumin 3.2 L Globulin 3.0 Albumin/Globulin Ratio 1.0 L Triglycerides Cholesterol LDL Cholesterol VLDL Cholesterol HDL Cholesterol Heart Disease Risk Ratio Vitamin B12 Folate TSH 3rd Generation 1.230 Urine Color Urine Appearance Urine pH Ur Specific [place] Urine Protein Urine Glucose (UA) Urine Ketones Urine Blood Urine Nitrate Urine Bilirubin Urine Urobilinogen Urine Leukocytes Urine RBC Urine WBC Ur Squamous Epith Cells Hyaline Casts Urine Mucus Ur Culture Indicated? VIOLETA (IgG-AHG) VIOLETA, Polyspecific 02/03/17 02/04/17 02/04/17 20:24 04:08 04:08 WBC 7.8 RBC 5.06 Hgb 11.4 L Hct 37.4 L MCV 73.9 L MCH 23 L MCHC 30.5 L RDW 18.5 H Plt Count 241 MPV 10.9 Neut % (Auto) 48.8 Lymph % (Auto) 28.6 [place] % (Auto) 11.3 Eos % (Auto) 9.9 Baso % (Auto) 1.0 H Neut # (Auto) 3.8 Lymph # (Auto) 2.2 [place] # (Auto) 0.9 H Eos # (Auto) 0.8 Baso # (Auto) 0.1 Immature Gran % 0.4 Nucleated RBC % 0.0 Immature Gran # 0.03 Nucleated RBCs # 0.00 Immature Plt Fraction 0.0 ESR [place]estergren Absolute Retic Percent Retic Retic Hgb Equivalent Sodium 142 Potassium 3.9 Chloride 110 H Carbon Dioxide 23 Anion Gap 12.9 BUN 17 Creatinine 1.00 GFR Calculation 92 BUN/Creatinine Ratio 17.00 Glucose 96 Calculated Osmolality 284.1 Calcium 8.8 Ferritin Total Bilirubin 0.80 AST 24 ALT 27 Alkaline Phosphatase 93 Total Creatine Kinase 70 94 D CK-MB (CK-2) < 1.0 1.2 Troponin I < 0.015 < 0.015 B-Natriuretic Peptide Total Protein 6.2 L Albumin 3.1 L Globulin 3.1 Albumin/Globulin Ratio 1.0 L Triglycerides 118 Cholesterol 158 LDL Cholesterol 112.0 VLDL Cholesterol 23.6 HDL Cholesterol 37 L Heart Disease Risk Ratio 4.27 Vitamin B12 Folate TSH 3rd Generation Urine Color Urine Appearance Urine pH Ur Specific [place] Urine Protein Urine Glucose (UA) Urine Ketones Urine Blood Urine Nitrate Urine Bilirubin Urine Urobilinogen Urine Leukocytes Urine RBC Urine WBC Ur Squamous Epith Cells Hyaline Casts Urine Mucus Ur Culture Indicated? VIOLETA (IgG-AHG) VIOLETA, Polyspecific
--- NOTE | 2017-02-04 07:45 | EKG Report ---
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
[2017-02-04] MEDS: IPRATROPIUM 500 MCG/2.5 ML NEB RESP TX SCH ×4 (08:07→19:21)
[2017-02-04] MEDS: SOTALOL 80 MG TABLET PO SCH ×2 (09:37→21:14)
[2017-02-04] MEDS: APIXABAN 5 MG TABLET PO SCH ×2 (09:37→21:14)
[2017-02-04] MEDS: POTASSIUM CHLORIDE 10 MEQ TABLET PO SCH (09:37)
[2017-02-04] MEDS: GABAPENTIN 300 MG CAPSULE PO SCH ×2 (09:37→21:14)
[2017-02-04] MEDS: busPIRone 10 MG TABLET PO SCH ×2 (09:37→15:39)
[2017-02-04] MEDS: PRAVASTATIN 40 MG TABLET PO SCH (09:37)
[2017-02-04] MEDS: TOPIRAMATE 100 MG TABLET PO SCH (09:38)
[2017-02-04] MEDS: PANTOPRAZOLE 40 MG TABLET PO SCH ×2 (09:38→09:41)
[2017-02-04] MEDS: traMADol 50 MG TABLET PO SCH (09:38)
[2017-02-04] MEDS: CIPROFLOXACIN 500 MG TABLET PO SCH ×2 (09:38→21:14)
[2017-02-04] MEDS: DOCUSATE SODIUM 100 MG CAPSULE PO SCH (09:39)
[2017-02-04] MEDS: clonazePAM 0.5 MG TABLET PO SCH ×3 (09:41→21:15)
[2017-02-04] MEDS: BUDESONIDE/FORMOTEROL 160-4.5 INHALER 6 GM INH SCH ×2 (09:41→21:16)
[2017-02-04 10:45] LABS: Hemoglobin A1 (Alkaline) 98.3 % (96.5-98.5)
[2017-02-04 10:46] LABS: Hemoglobin A2 (Alkaline) 1.7 % (1.5-3.5)
--- NOTE | 2017-02-04 16:51 | Hospitalist Consult Note ---
Assessment and Plan (1) Polypharmacy Status: Chronic Assessment and plan: The patient's cardiac workup was essentially benign for any acute cardiac injury or involvement. Cardiology suggested that the patient's presenting symptoms may be largely attributed to polypharmacy. Upon review of the patient' s medical record, the patient is noted to be on MULTIPLE and analgesics, benzodiazepines, anti-anxiety, and anticonvulsant agents which are potentially could attribute to the patient's presenting symptoms. In addition, the patient was noted to use multiple [id number] sleep agents in addition to the prescribed potentially sedative agents. The reports that the patient is currently followed in the outpatient setting at the [facility] in [facility]. She reports that the patient's primary physician is Dr. Michael Castillo. She reports that Dr. castillo manages her 's medication. Given the patient's extensive comorbidities including obstructive sleep apnea, hypertension and atrial fibrillation, the use of multiple potentially sedative agents are very concerning. We have reviewed the patient's medication list. We will adjust and taper doses carefully to prevent withdrawal symptoms. Current Visit: Yes History of Present Illness - Consult Narrative Reason for consult: Medical management for poly-pharmacology History of present illness: This is a very pleasant 71-year-old male that presented to [facility] as a direct admission from the [facility] [place] at the [facility] is a direct admission for the further evaluation of weakness, dizziness, cardiac arrhythmias, and hypotension. The patient has a long and extensive medical history significant for hypertension, paroxysmal atrial fibrillation, post traumatic stress disorder, depression, migraine headaches, vision loss, dyslipidemia, peripheral neuropathy, asthma, chronic obstructive pulmonary disease, obstructive sleep apnea, benign prostatic hypertrophy, diverticulitis, diverticulosis, gastroesophageal reflux disease, hemorrhoids, colon polyps, degenerative disc disease, and skin cancer. Patient has surgical history significant for eye surgery in which his eyes were surgically sewn closed, tonsillectomy, adenoidectomy, appendectomy, colonoscopy, EGD, and transurethral resection of the prostate. Apparently, the patient was scheduled to see Dr. Escobedo on the morning of presentation. The patient was in his usual state of health until he attempted to get out of the car at the learning analyst this morning. As he was attempting to get out of the car, the patient began to feel lightheaded, dizzy, and profoundly weak. The patient was assisted into the doctor's office and examined. The patient was found to be in atrial fibrillation with a heart rate noted at 105, blood pressure of 96/68. In addition, the patient was experiencing an unsteady gait and complaint of midsternal chest tightness without radiation. The patient was subsequently admitted as a direct admission to the critical care setting for further evaluation. The patient was admitted and gently rehydrated. The patient's antihypertensive agents were held. In addition, the patient was noted to have a urinary tract infection and empiric antibiotic coverage was initiated. After the cardiac workup was essentially unremarkable, the patient's symptoms were thought to be attributed to polypharmacy. The hospitalist group was consulted to evaluate for polypharmacology. CC: Odin Escobedo MD - Home Medications and Allergies Home Medications: Home Medications Medication Instructions Recorded Confirmed Type Albuterol Sulfate [Albuterol Neb] 1.25 mg RESP TX Q6HR 05/04/16 02/03/17 History Albuterol Sulfate [Ventolin HFA] 2 puff INH Q6HR 05/04/16 02/03/17 History Amitriptyline [Elavil] 4 tablet PO BEDTIME 05/04/16 02/03/17 History Apixaban [Eliquis] 5 mg PO BID 05/04/16 02/03/17 History Aspirin [Ecotrin] 81 mg PO DAILY 05/04/16 02/03/17 History Budesonide/Formoterol 160-4.5 2 puff INH BID 05/04/16 02/03/17 History [Symbicort 160-4.5] Docusate Sodium Cap [Colace Cap] 3 tablet PO DAILY 05/04/16 02/03/17 History Echinacea 2 tablet PO DAILY 05/04/16 05/04/16 History Gabapentin 300 mg PO BID 05/04/16 02/03/17 History Garlic 2 capsule PO DAILY 05/04/16 02/03/17 History Ipratropium [place] 0.2 mg IH QID 05/04/16 02/03/17 History Lisinopril 2.5 mg PO DAILY 05/04/16 02/03/17 History Multivitamin [Multivitamins] 1 each PO DAILY 05/04/16 02/03/17 History Naproxen [Naprosyn Tab] 250 mg PO BID PRN 05/04/16 02/03/17 History Drew-3 Fatty Acids [Fish Oil] 2,000 mg PO DAILY 05/04/16 02/03/17 History Pantoprazole Tab [Protonix Tab] 2 tablet PO BID 05/04/16 02/03/17 History Polyvinyl Alcohol 1.4% Oph [place] 1 drop BOTH EYES Q2H PRN 05/04/16 02/03/17 History [Artificial Tears Oph Soln] Potassium Chloride 10 meq PO BID 05/04/16 02/03/17 History Pravastatin [Pravachol] 40 mg PO DAILY 05/04/16 02/03/17 History Primidone 0.5 capsule PO BEDTIME 05/04/16 02/03/17 History Topiramate [Topamax] 0.5 tablet PO BID 05/04/16 02/03/17 History amLODIPine [Norvasc] 10 mg PO DAILY 05/04/16 02/03/17 History busPIRone [Buspar] 10 mg PO TID 05/04/16 02/03/17 History clonazePAM TAB [KlonoPIN] 0.5 mg PO QID 05/04/16 02/03/17 History hydroCHLOROthiazide 25 mg PO DAILY 05/04/16 02/03/17 History [Hydrochlorothiazide] raNITIdine HCl [Ranitidine HCl] 2 capsule PO BEDTIME 05/04/16 02/03/17 History traMADol TAB [Ultram] 50 mg PO BID 05/04/16 02/03/17 History Allergies/Adverse Reactions: Allergies Allergy/AdvReac Type Severity Reaction Status Date / Time Beef Allergy Mild Nasal Verified 02/03/17 12:23 Congestion Cola Allergy Mild Nasal Verified 02/03/17 12:23 Congestion Milk Containing Products Allergy Mild Nasal Verified 02/03/17 12:23 Congestion Nuts Allergy Mild Nasal Verified 02/03/17 12:22 Congestion Pork Allergy Mild Nasal Verified 02/03/17 12:23 Congestion bacitracin Allergy Unknown Unknown/Unable Verified 05/04/16 13:22 [From Neosporin to obtain ([id number])] magnesium Allergy Unknown Unknown/Unable Verified 05/04/16 13:22 to obtain Neomycin Allergy Unknown Unknown/Unable Verified 05/04/16 13:22 [From Neosporin to obtain ([id number])] polymyxin B Allergy Unknown Unknown/Unable Verified 05/04/16 13:22 [From Neosporin to obtain ([id number])] zinc Allergy Unknown Unknown/Unable Verified 05/04/16 13:22 to obtain Medical,Surgical,& Family Hx - Medical History Cardio: History of: Cardiac Dysrhythmia, Hypertension, Cardiovascular Problems ( mitral valve leak, afib) No history of: CAD Psychological: History of: Anxiety Disorders (ptsd), Depression Neurology: History of: Migraine No history of: Seizures, TIA HEENT: History of: Ear Problem (Tubes placed multiple times), Eye Problem (blind ) Endocrine: History of: Dyslipidemia Rheumatology: History of;: Rheumatological Problems (neuropathy) Respiratory: History of: Asthma, COPD, Obstructive Sleep Apnea (CPAP AT HOME) Genitourinary: History of: Prostate Problems (ENLARGED PROSTATE, DR AHUMADA "DID A CLEAN OUT" PER ) Gastrointestinal: History of: Diverticulitis/ Diverticulosis, GERD, Hemorrhoids (hemmorhoidectomy "A COUPLE OF TIMES"), Polyps (REMOVED A YEAR AGO) Musculoskeletal: History of: Back/Neck Problems (back surgery x 3 Chronic back pain), Degenerative Disk Disease Other: History of: Cancer (melanoma right wrist- removed) No history of: Anesthesia Reactions - Surgical History HEENT Surgeries: Surgical HX of: Eye Surgery (eye lids surgically closed), Tonsilectomy & Adenoidectomy Abdominal Surgeries: Surgical HX of: Appendectomy, Colonoscopy ("JUST OVER A YEAR AGO"), EGD Reproductive Surgeries: Surgical HX of;: Prostate Surgery - Family History Family History: Reports;: Family Cancer (sister-thyroid, brother-lung, lymphoma) - Social History Smoking Status: Never smoker Frequency of Alcohol Use: Rarely Type of Drug Use: None Exam - Constitutional Vitals: Period Temp Pulse Resp BP Sys/Conte Pulse Ox Last 24 Hr 95.8 F-98.5 F 56-109 14-24 91-116/64-84 96-100 General appearance: normal weight, no acute distress - Head Head exam: Present: normal inspection, normocephalic - Eye Eye exam: Present: other (Patient is visually impaired; both eyes have been sutured closed) - ENT ENT exam: Present: normal exam, normal external ear exam, normal oropharynx - Neck Neck exam: Present: normal inspection. Absent: lymphadenopathy, meningismus, thyromegaly - Respiratory Respiratory exam: Present: clear to auscultation bilaterally. Absent: rales, rhonchi, stridor, wheezes - Cardiovascular Cardiovascular exam: Present: regular rate and rhythm, tachycardia. Absent: carotid bruit, diastolic murmur, gallop, JVD, rubs, systolic murmur - GI/Abdominal GI/Abdominal exam: Present: normal bowel sounds, soft - Extremities Exam Extremities exam: Present: normal inspection, normal capillary refill, full ROM. Absent: edema - Back Exam Back exam: Present: normal inspection - Neurological Exam Neurological exam: Present: alert, oriented X3, CN II-XII intact - Psychiatric Psychiatric exam: Present: normal affect, normal mood - Skin Skin exam: Present: normal color, warm, dry Results - Labs CBC & BMP: 02/04/17 04:08 02/04/17 04:08 Lab Results: I have reviewed the past 24 hour labs
[2017-02-04] MEDS: PRIMIDONE 250 MG TABLET PO SCH (21:14)
[2017-02-04] MEDS: TOPIRAMATE 25 MG TABLET PO SCH (21:14)
[2017-02-04] MEDS: oxyCODONE ER 20 MG TABLET PO SCH (21:15)
[2017-02-04] MEDS: AMITRIPTYLINE 100 MG TABLET PO SCH (21:15)
[2017-02-04] MEDS: busPIRone 15 MG TABLET PO SCH (21:15)
[2017-02-05] MEDS: SODIUM CHLORIDE 0.45% 1,000 ML IV SCH ×4 (00:10→09:47)
[2017-02-05] MEDS: ALBUTEROL 2.5 MG/3 ML NEB RESP TX SCH ×2 (00:31→07:42)
--- NOTE | 2017-02-05 03:29 | Cardiology Progress Note ---
Cardiology - PN: Subj Interval history: Cardiology note 71-year-old man with hypotension, altered mental status and recurrent atrial fibrillation. Patient has chronic pain syndrome and PTSD and requires multiple analgesics. Telemetry shows atrial fib with controlled rate in the 70s. Blood pressure 118/76 O2 sat 94 on CPAP Irregular rhythm no murmur Decreased breath sounds but clear Abdomen nontender No leg edema Patient is blind and had his sclera sutured closed in 1990. Impression Recurrent atrial fibrillation Hypotension and altered mental status-resolved Overmedication from polydrug pharmacy Chronic pain syndrome and PTSD Patient is blind, status post suture closure sclera 1980 following ultraviolet light injury JILLIAN UTI. Urine culture growing gram-negative rods. Blood cultures are negative at 24 hours. Chronic anticoagulation with Eliquis Plan Continue Eliquis 5 mg twice daily Continue sotalol 80 mg twice daily CPAP nightly Normal saline hydration Awaiting urine final organism ID and sensitivities. Continue ciprofloxacin 500 mg twice daily Exam (Progress Note) - Constitutional Vitals: Period Temp Pulse Resp BP Sys/Conte Pulse Ox Last 24 Hr 95.8 F-98.6 F 56-89 14-20 91-115/59-77 96-100 Result/EKG - Labs CBC & BMP: 02/04/17 04:08 02/04/17 04:08 Labs: Laboratory Results - last 24 hr 02/03/17 02/03/17 02/04/17 12:10 12:10 04:08 WBC 7.8 RBC 5.06 Hgb 11.4 L Hct 37.4 L MCV 73.9 L MCH 23 L MCHC 30.5 L RDW 18.5 H Plt Count 241 MPV 10.9 Neut % (Auto) 48.8 Lymph % (Auto) 28.6 [place] % (Auto) 11.3 Eos % (Auto) 9.9 Baso % (Auto) 1.0 H Neut # (Auto) 3.8 Lymph # (Auto) 2.2 [place] # (Auto) 0.9 H Eos # (Auto) 0.8 Baso # (Auto) 0.1 Immature Gran % 0.4 Nucleated RBC % 0.0 Immature Gran # 0.03 Nucleated RBCs # 0.00 Anemia Panel Interp Immature Plt Fraction 0.0 Hemoglobin A1 98.3 Hemoglobin A2 1.7 Hgb ELP Interp Sodium Potassium Chloride Carbon Dioxide Anion Gap BUN Creatinine GFR Calculation BUN/Creatinine Ratio Glucose Calculated Osmolality Calcium Total Bilirubin AST ALT Alkaline Phosphatase Total Creatine Kinase CK-MB (CK-2) Troponin I Total Protein Albumin Globulin Albumin/Globulin Ratio Triglycerides Cholesterol LDL Cholesterol VLDL Cholesterol HDL Cholesterol Heart Disease Risk Ratio 02/04/17 04:08 WBC RBC Hgb Hct MCV MCH MCHC RDW Plt Count MPV Neut % (Auto) Lymph % (Auto) [place] % (Auto) Eos % (Auto) Baso % (Auto) Neut # (Auto) Lymph # (Auto) [place] # (Auto) Eos # (Auto) Baso # (Auto) Immature Gran % Nucleated RBC % Immature Gran # Nucleated RBCs # Anemia Panel Interp Immature Plt Fraction Hemoglobin A1 Hemoglobin A2 Hgb ELP Interp Sodium 142 Potassium 3.9 Chloride 110 H Carbon Dioxide 23 Anion Gap 12.9 BUN 17 Creatinine 1.00 GFR Calculation 92 BUN/Creatinine Ratio 17.00 Glucose 96 Calculated Osmolality 284.1 Calcium 8.8 Total Bilirubin 0.80 AST 24 ALT 27 Alkaline Phosphatase 93 Total Creatine Kinase 94 D CK-MB (CK-2) 1.2 Troponin I < 0.015 Total Protein 6.2 L Albumin 3.1 L Globulin 3.1 Albumin/Globulin Ratio 1.0 L Triglycerides 118 Cholesterol 158 LDL Cholesterol 112.0 VLDL Cholesterol 23.6 HDL Cholesterol 37 L Heart Disease Risk Ratio 4.27
[2017-02-05 06:04] LABS: Basophils # 0.1 10*3/uL (0.0-0.2); Basophils % 1.1 % (0.0-0.8); Eosinophils # 0.7 10*3/uL (0.0-0.87); Eosinophils % 9.5 % (0.00-10.9); Hematocrit 34.9 VOL% (42.0-52.0); Hemoglobin 10.6 GM/DL (14.0-18.0); Immature Granulocytes % 0.3 %; Immature Granulocytes Absolute 0.02 #; Lymphocytes # 2.6 10*3/uL (1.4-4.0); Lymphocytes % 35.9 % (21.2-54.2); Mean Corpuscular HGB Conc 30.4 GM/DL (32-36); Mean Corpuscular Hemoglobin 23 PG (27-34); Mean Corpuscular Volume 74.4 FL (87-102); Mean Platelet Volume 11.1 FL (9.6-12.0); Monocytes # 0.8 10*3/uL (0.11-0.8); Monocytes % 10.6 % (1.7-12.7); Neutrophils # 3.1 10*3/uL (1.4-7.4); Neutrophils % 42.6 % (38.7-73.9); Platelet Count 235 T/CUMM (130-400); Red Blood Count 4.69 MC/CUMM (3.8-5.5); Red Cell Distribution Width 18.6 % (9.3-17.3); White Blood Count 7.2 T/CUMM (4-12)
[2017-02-05 06:37] LABS: Calcium 8.5 MG/DL (8.5-10.1); Magnesium 2.3 MG/DL (1.8-2.4); Potassium 4.3 MMOL/L (3.5-5.1)
[2017-02-05] MEDS: IPRATROPIUM 500 MCG/2.5 ML NEB RESP TX SCH ×2 (07:42→11:29)
--- NOTE | 2017-02-05 08:29 | Hospitalist Progress Note ---
Assessment and Plan - Time spent with patient Time spent with patient: Less than 30 minutes (1) Polypharmacy Status: Chronic Assessment and plan: He is currently doing well. There have been some adjustments made to his medical regimen and attempt to reduce and/or taper to prevent withdrawal. Have instructed and family members in the room since he is otherwise doing well at this time will continue but this would likely be a prolonged process that would need to be managed on an outpatient basis with his primary care provider. Current Visit: Yes (2) PAF (paroxysmal atrial fibrillation) Status: Chronic Assessment and plan: Plans per cardiology. Current Visit: Yes (3) UTI (urinary tract infection) Status: Chronic Assessment and plan: Awaiting ID and sensitivities. Current Visit: Yes Hospitalist: Subjective Interval history: Chart examined and patient seen. Patient has no new complaints and states he slept well and his pain was controlled last evening. Exam - Constitutional Vitals: Period Temp Pulse Resp BP Sys/Conte Pulse Ox Last 24 Hr 96.8 F-98.6 F 56-79 14-20 91-117/59-70 96-100 General appearance: no acute distress - Head Head exam: Present: normocephalic, atraumatic - Eye Eye exam: Present: other (Legally blind) - ENT ENT exam: Present: normal exam - Neck Neck exam: Present: normal inspection - Respiratory Respiratory exam: Present: clear to auscultation bilaterally - Cardiovascular Cardiovascular exam: Present: irregular rhythm. Absent: systolic murmur - GI/Abdominal GI/Abdominal exam: Present: normal bowel sounds, soft. Absent: tenderness - Extremities Exam Extremities exam: Absent: calf tenderness - Neurological Exam Neurological exam: Present: alert, oriented X3, CN II-XII intact - Psychiatric Psychiatric exam: Present: normal affect, normal mood. Absent: agitated, anxious - Skin Skin exam: Present: warm, dry. Absent: erythema Results - Labs CBC & BMP: 02/05/17 05:27 02/05/17 05:27 Lab Results: I have reviewed the past 24 hour labs
[2017-02-05] MEDS: GABAPENTIN 300 MG CAPSULE PO SCH ×2 (08:52→21:15)
[2017-02-05] MEDS: APIXABAN 5 MG TABLET PO SCH ×2 (08:52→21:15)
[2017-02-05] MEDS: SOTALOL 80 MG TABLET PO SCH ×2 (08:52→21:16)
[2017-02-05] MEDS: DOCUSATE SODIUM 100 MG CAPSULE PO SCH (08:52)
[2017-02-05] MEDS: CIPROFLOXACIN 500 MG TABLET PO SCH ×2 (08:53→21:15)
[2017-02-05] MEDS: TOPIRAMATE 25 MG TABLET PO SCH ×2 (08:53→21:15)
[2017-02-05] MEDS: busPIRone 15 MG TABLET PO SCH ×3 (08:53→21:15)
[2017-02-05] MEDS: oxyCODONE ER 20 MG TABLET PO SCH ×2 (08:54→21:16)
[2017-02-05] MEDS: clonazePAM 0.5 MG TABLET PO SCH ×3 (08:54→21:15)
[2017-02-05] MEDS: PANTOPRAZOLE 40 MG TABLET PO SCH (08:54)
[2017-02-05] MEDS: PRAVASTATIN 40 MG TABLET PO SCH (08:54)
[2017-02-05] MEDS: BUDESONIDE/FORMOTEROL 160-4.5 INHALER 6 GM INH SCH ×2 (08:58→21:19)
[2017-02-05] MEDS ORDERED: busPIRone 15 MG TABLET PO SCH (09:00)
[2017-02-05] MEDS: ALBUTEROL/IPRATROPIUM 3 ML NEB RESP TX SCH ×2 (13:56→18:45)
[2017-02-05] MEDS: AMITRIPTYLINE 100 MG TABLET PO SCH (21:14)
[2017-02-05] MEDS: PRIMIDONE 250 MG TABLET PO SCH (21:14)
[2017-02-06] MEDS: ALBUTEROL/IPRATROPIUM 3 ML NEB RESP TX SCH ×2 (00:53→07:29)
[2017-02-06 04:45] LABS: Basophils # 0.1 10*3/uL (0.0-0.2); Basophils % 1.1 % (0.0-0.8); Eosinophils # 0.5 10*3/uL (0.0-0.87); Eosinophils % 6.5 % (0.00-10.9); Hematocrit 33.1 VOL% (42.0-52.0); Hemoglobin 10.2 GM/DL (14.0-18.0); Immature Granulocytes % 0.4 %; Immature Granulocytes Absolute 0.03 #; Lymphocytes # 2.3 10*3/uL (1.4-4.0); Mean Corpuscular HGB Conc 30.8 GM/DL (32-36); Mean Corpuscular Hemoglobin 23 PG (27-34); Mean Corpuscular Volume 74.5 FL (87-102); Mean Platelet Volume 10.7 FL (9.6-12.0); Monocytes # 0.8 10*3/uL (0.11-0.8); Monocytes % 10.4 % (1.7-12.7); Neutrophils # 3.8 10*3/uL (1.4-7.4); Neutrophils % 50.6 % (38.7-73.9); Platelet Count 225 T/CUMM (130-400); Red Blood Count 4.44 MC/CUMM (3.8-5.5); Red Cell Distribution Width 18.5 % (9.3-17.3); White Blood Count 7.4 T/CUMM (4-12)
[2017-02-06 05:16] LABS: Calcium 8.2 MG/DL (8.5-10.1); Magnesium 2.4 MG/DL (1.8-2.4); Osmolality,Calculated 286.8 MOS/KG (273-304); Potassium 4.1 MMOL/L (3.5-5.1)
[2017-02-06 08:19] VITALS: BP 118/68
[2017-02-06] MEDS: DOCUSATE SODIUM 100 MG CAPSULE PO SCH (08:36)
[2017-02-06] MEDS: CIPROFLOXACIN 500 MG TABLET PO SCH (08:36)
[2017-02-06] MEDS: SOTALOL 80 MG TABLET PO SCH (08:37)
[2017-02-06] MEDS: GABAPENTIN 300 MG CAPSULE PO SCH (08:37)
[2017-02-06] MEDS: TOPIRAMATE 25 MG TABLET PO SCH (08:37)
[2017-02-06] MEDS: PANTOPRAZOLE 40 MG TABLET PO SCH (08:37)
[2017-02-06] MEDS: busPIRone 15 MG TABLET PO SCH (08:37)
[2017-02-06] MEDS: oxyCODONE ER 20 MG TABLET PO SCH (08:37)
[2017-02-06] MEDS: PRAVASTATIN 40 MG TABLET PO SCH (08:37)
[2017-02-06] MEDS: APIXABAN 5 MG TABLET PO SCH (08:37)
[2017-02-06] MEDS: clonazePAM 0.5 MG TABLET PO SCH (08:37)
[2017-02-06] MEDS: BUDESONIDE/FORMOTEROL 160-4.5 INHALER 6 GM INH SCH (08:42)
--- NOTE | 2017-02-06 08:58 | Hospitalist Progress Note ---
Assessment and Plan - Time spent with patient Time spent with patient: Less than 30 minutes (1) Polypharmacy Status: Chronic Assessment and plan: He is currently doing well. There have been some adjustments made to his medical regimen and attempt to reduce and/or taper to prevent withdrawal. Have instructed and family members in the room since he is otherwise doing well at this time will continue but this would likely be a prolonged process that would need to be managed on an outpatient basis with his primary care provider. 02/06/17: Continue his current medications as he is responded well. Apparently Ultram was discontinued previously and is been placed on OxyContin 20 mg p.o. every 12 hours. I will give him a prescription to maintain him until he can follow-up at pain management clinic, Dr. Bob Estrada, as discussed. Current Visit: Yes (2) PAF (paroxysmal atrial fibrillation) Status: Chronic Assessment and plan: Plans per cardiology. Current Visit: Yes (3) UTI (urinary tract infection) Status: Chronic Assessment and plan: Awaiting ID and sensitivities. 02/06/17: Patient has pseudomonal UTI which is sensitive to ciprofloxacin. Will complete oral therapy as an outpatient. Current Visit: Yes Hospitalist: Subjective Interval history: Patient is doing well without complaints. He has no pain and slept well. Note plans for probable discharge today. Exam - Constitutional Vitals: Period Temp Pulse Resp BP Sys/Conte Pulse Ox Last 24 Hr 96.8 F-97.9 F 62-71 16-20 105-118/61-69 97-100 General appearance: no acute distress - Head Head exam: Present: normocephalic, atraumatic - Eye Eye exam: Present: other (Legally blind) - ENT ENT exam: Present: normal exam - Neck Neck exam: Present: normal inspection - Respiratory Respiratory exam: Present: clear to auscultation bilaterally - Cardiovascular Cardiovascular exam: Present: irregular rhythm - GI/Abdominal GI/Abdominal exam: Present: normal bowel sounds, soft. Absent: tenderness - Extremities Exam Extremities exam: Absent: calf tenderness, edema - Back Exam Back exam: Present: normal inspection - Neurological Exam Neurological exam: Present: alert, oriented X3 - Psychiatric Psychiatric exam: Present: normal affect, normal mood. Absent: agitated, anxious - Skin Skin exam: Present: warm, dry. Absent: erythema Results - Labs CBC & BMP: 02/06/17 04:24 07/30/17 04:24 Lab Results: I have reviewed the past 24 hour labs
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
== END 2017-02-06 12:00 | disposition home or self-care (01) | DRG 690 ==
LOC: N.CC 11:24 → INTOOBSV 11:24 → N.TELEN 02-04 13:45 → N.TELES 02-04 13:58
PROVIDERS: ADMIT Internal Medicine Interventional Cardiology; ATTEND Internal Medicine Interventional Cardiology